=== PATIENT | female | born 1950 | race Caucasian/White ===

== ENCOUNTER → 2017-02-16 | Outpatient (REF) ==
[2017-02-16 14:33] LABS: MEAN PLATELET VOLUME 11.9 FL (6.0-9.5); PLATELET COUNT 295 10^3uL (150-450); WHITE BLOOD COUNT 8.16 10^3uL (4.0-11.0)
[2017-02-16 14:35] LABS: MEAN CORPUSCULAR HEMOGLOBIN 24.3 PG (26.0-34.0); MEAN CORPUSCULAR HGB CONC 30.6 g/dL (31.0-37.0); MEAN CORPUSCULAR VOLUME 79 FL (80-100)
[2017-02-16 14:39] LABS: ALBUMIN 4.5 g/dL (3.4-5.0); ANION GAP 16.2 MEQ/L (3-15); CALCULATED IONIZED CALCIUM 4.3 mg/dL (3.8-4.6); TOTAL PROTEIN 8.4 g/dL (6.4-8.5)
[2017-02-16 14:45] LABS: BAND NEUTROPHILS % 5 % (0-6); EOSINOPHILS % 2 % (0-4); LYMPHOCYTES # 2.5 #; MONOCYTES # 0.6 #; MONOCYTES % 8 % (3-11); RBC MORPH NORMAL (NORMAL); SEGMENTED NEUTROPHILS % 54 % (51-67); TOTAL CELLS COUNTED 100
== END ==
LOC: CLAB.BLUES 13:20
PROVIDERS: ATTEND Family Medicine
DX: G35 Multiple sclerosis (principal)
CPT/HCPCS: 80053; 85007; 85027

== ENCOUNTER → 2017-02-23 | Outpatient (REF) | LOC: CLAB.BLUES 15:23 | PROVIDERS: ATTEND Family Medicine | DX: Z53.8 Procedure and treatment not carried out for other reasons (principal) ==

== ENCOUNTER → 2017-03-09 | Outpatient (REF) | LOC: CLAB.BLUES 16:36 | PROVIDERS: ATTEND Family Medicine | DX: E55.9 Vitamin D deficiency, unspecified (principal) | CPT/HCPCS: 82306 ==